=== PATIENT | female | born 2000 | race Two or more races ===

== ENCOUNTER 2022-07-10 11:29 | Emergency (ER) | payer BC ==
[~2022-07-10] VITALS: Ht 170.2 cm; Wt 63.5 kg
--- NOTE | 2022-07-10 12:02 | NUR ---
PT IN ROOM BREATHING UNLABORED A/O X4 C/O OF CHEST PAIN 4/10 Hx OF L VENTRICUALR PATHOLOGY PER PT'S STATEMENTS. CURRENTLY IN REHAB CLEAN FOR 60 DAYS. TAKE Rx FOR ANXIETY NOT CURRENTLY EXPERINCING ANXIETY OR SI. PT CONNECTED TO BEDSIDE MONITOR BED IN LOWEST POSITION AND LOCKED.
[2022-07-10] MEDS ORDERED: IBUPROFEN 600 MG TABLET ONE (12:16)
[2022-07-10] MEDS ORDERED: IBUPROFEN 600 MG TABLET PO ONE (12:30)
--- NOTE | 2022-07-10 13:00 | NUR ---
PT PROVIDED WITH DISCHARGE INSTRUCTIONS. PT VERBALIZED UNDERSTANDING. PT RESPIRATIONS WERE EQUAL AND UNLABORED, PT DENIED SOB. PT DENIES CP. PT AMBULATED OUT OF THE ER WITH A STEADY GAIT WITH FAMILY MEMBER
[2022-07-10 13:02] VITALS: BP 101/60
== END 2022-07-10 13:04 | disposition home or self-care (01) ==
LOC: ER 11:43
DX: R07.9 Chest pain, unspecified (principal)
CPT/HCPCS: 71045-TC